=== PATIENT | male | born 1965 | race African-American/Black ===

== ENCOUNTER 2016-11-11 07:39 | Emergency (ER) | payer MEDICAID, OTHER ==
[~2016-11-11] VITALS: Ht 195.6 cm; Wt 174.6 kg
[~2016-11-11 07:39] MED LIST: 1-ME1LIQ PO; ASPI81TA82 PO; CLON-352 PO; COZA50TA PO; FIORIC PO; GLUCTAB PO; IBUP800T23 PO; LISI40TA PO; NIFE10CA PO
[2016-11-11 07:44] VITALS: BP 197/106; PULSE 69; RESP 16; TEMP 97.9; O2SAT 95
[2016-11-11] MEDS ORDERED: NIFE10CA PO (08:02)
[2016-11-11] MEDS ORDERED: METF500T PO (08:02)
[2016-11-11] MEDS ORDERED: LISI40TA PO (08:02)
[2016-11-11] MEDS ORDERED: ASPI1TAB69 PO (08:02)
[2016-11-11] MEDS ORDERED: LOSA50TA PO (08:02)
[2016-11-11] MEDS ORDERED: CLON0.2T PO (08:02)
--- NOTE | 2016-11-11 08:14 | PD ---
HPI Chief Complaint: Musculoskeletal Complaint Time Seen by Provider: 08:05 Travel History International Travel<30 days: No Contact w/Intl Traveler<30days: No Traveled to known affect area: No History of Present Illness HPI 51-year-old man presents emergency Department with left shoulder and anterior brachial pain. States symptoms come and go. The been coming and going for several weeks. The maybe a little bit worse after he goes to the gym. He doesn 't do any heavy lifting. He otherwise has been feeling generally well. No previous injuries. Patient on Lortab and anti-inflammatory pain medicines already for his right knee. PFSH Past Medical History Arthritis: Yes Anxiety: No Depression: No Heart Rhythm Problems: Yes (HAS NOT SEEN SPECIALIST) Cancer: No Cardiac Catheterization: No Cardiovascular Problems: Yes (HTN) High Cholesterol: No Chest Pain: No Congestive Heart Failure: No Diabetes: Yes (METFORMIN/GLIPERIDE) Patient Takes Glucophage: Yes Diminished Hearing: No Endocrine: Yes Gastrointestinal Disorders: No Gout: Yes Genitourinary: No Headaches: Yes Hypertension: Yes Implanted Vascular Access Dvce: No Musculoskeletal: Yes Neurologic: Yes Psychiatric: No Reproductive: No Myocardial Infarction: No Pneumonia: Yes Influenza Vaccination: Yes ?: Not Past Surgical History Coronary Artery Bypass Graft: No Joint Replacement: Yes (RIGHT KNEE) Pacemaker: No Tonsillectomy: Yes Other Surgery: Yes (RIGHT KNEE REPLACED JAN 2012 AND JUL 2012) Social History Alcohol Use: No Tobacco Use: No (QUIT 2011) Substance Use: No Allergies-Medications (Allergen,Severity, Reaction): Coded Allergies: Codeine (Verified Allergy, Severe, Nausea/Vomiting, 11/11/16) Morphine (Verified Allergy, Severe, Itching, 11/11/16) Percocet (Verified Allergy, Unknown, itch, 11/11/16) Uncoded Allergies: NEPALESE SPRING (Allergy, Unknown, 08/31/11) JAMMIE (Allergy, Unknown, 08/31/11) SKIN SO SOFT (Allergy, Unknown, 08/31/11) Reported Meds & Prescriptions Reported Meds & Active Scripts Active Reported Aspirin 81 Mg Tabdr 81 Mg PO DAILY Lisinopril 40 Mg Tab 40 Mg PO DAILY Clonidine (Clonidine HCl) 0.2 Mg Tab 0.2 Mg PO TID Losartan (Losartan Potassium) 50 Mg Tab 50 Mg PO DAILY Metformin (Metformin HCl) 500 Mg Tab 500 Mg PO BIDPC With meals Nifedipine 10 Mg Cap 10 Mg PO BID Review of Systems Except as stated in HPI: all other systems reviewed are Neg Physical Exam Narrative GENERAL: Well-appearing 51 year-old man, no acute distress. SKIN: Warm and dry. CARDIOVASCULAR: Warm and well perfused. RESPIRATORY: Normal rate and effort. MUSCULOSKELETAL: Focused examination of the left upper extremity reveals normal appearance of the left shoulder and left arm. He has full range of motion of the shoulder. He localizes the pain to the anterior aspect of the proximal left brachium. There is no focal tenderness there. Pain is not reproduced with abduction and flexion and internal or external rotation of the shoulder. NEUROLOGICAL: Awake and alert. No gross deficits. Data Data Last Documented VS Vital Signs Date Time Temp Pulse Resp B/P Pulse Ox O2 Delivery O2 Flow Rate FiO2 11/11/16 07:44 97.9 69 16 197/106 95 MDM Medical Decision Making Medical Screen Exam Complete: Yes Emergency Medical Condition: Yes Differential Diagnosis Strain or sprain, rotator cuff injury, ligament is injury, other Narrative Course Medical decision making 51 year-old man presents emergency Department with left arm pain. Looks well. No clear injuries. Is on Lortab and ibuprofen already. I recommend continue supportive treatment. Reduce weight at the gym until symptoms resolve. Diagnosis Primary Impression: Left arm pain Additional Instructions: Continue pain medications as prescribed. I recommend reducing weight on the left arm at the gym, doing higher wraps, until symptoms resolve. Return to the emergency department for any new or worsening symptoms. Med/Other Pt SpecificInfo: No Change to Meds Disposition: 01 DISCHARGE HOME Condition: Stable Ministerio Anne MD November 11, 2016 08:14
== END 2016-11-11 08:28 | disposition home or self-care (01) ==
LOC: PHEFT 07:39
DX: M79.602 Pain in left arm (principal); I10 Essential (primary) hypertension; E11.9 Type 2 diabetes mellitus without complications; Z87.891 Personal history of nicotine dependence
CPT/HCPCS: 99283